=== PATIENT | male | born 1945 | race Caucasian/White ===

== ENCOUNTER 2017-01-09 11:55 | Emergency (ER) | payer MEDICARE, BC ==
[2017-01-09] MEDS ORDERED: Diph,Pert(Acell),Tet Vac 0.5 ML SYR IM ONE (12:22)
--- NOTE | 2017-01-09 12:27 | Emergency Department Record ---
History of Present Illness - General Chief Complaint: Laceration(s) Stated Complaint: LT HAND LACERATION Time Seen by Provider: 01/09/17 12:22 Source: Patient Mode of Arrival: Ambulatory Limitations: No limitations - History of Present Illness Initial Commments: 71 yo male presents with a laceration to his left hand. He had been fishing. He had just cleaned his filet knife and lacerated his left hand. No loss in sensation or ROM. No limitation in movement. He does not know when his last tetanus shot was performed. Onset/Timin -: Minutes(s) Extremity Location: Left: Hand Place: Outdoors Context: Accidental, Sharp object use Associated Symptoms: None Treatments Prior to Arrival: Bandage - Yifan Coma Scale Eye Response: (4) Open spontaneously Motor Response: (6) Obeys commands Verbal Response: (5) Oriented Yifan Total: 15 - Related Data Hx Tetanus Toxoid Vaccination: Yes Patient Tetanus UTD (within 5 yrs): No Home Medications Medication Instructions Recorded Confirmed Last Taken Aspirin [Aspirin EC] 81 mg PO DAILY 01/09/17 01/09/17 Unknown Cholecalciferol (Vitamin D3) 1,000 unit PO DAILY 01/09/17 01/09/17 Unknown [Vitamin D3] Folic Acid 0.4 mg PO DAILY 01/09/17 01/09/17 Unknown Furosemide [Lasix] 20 mg PO DAILY 01/09/17 01/09/17 Unknown Gabapentin [Neurontin] 300 mg PO Q8H 01/09/17 01/09/17 Unknown Hydrocodone/Acetaminophen [[place] 1 each PO Q8H 01/09/17 01/09/17 Unknown 10-325 Tablet] Omeprazole 40 mg PO DAILY 01/09/17 01/09/17 Unknown Simvastatin [Zocor] 20 mg PO DAILY 01/09/17 01/09/17 Unknown Tramadol HCl [Ultram] 50 mg PO Q8H 01/09/17 01/09/17 Unknown Warfarin Sodium [Coumadin] 9 mg PO DAILY 01/09/17 01/09/17 Unknown Previous Rx's Medication Instructions Recorded Cephalexin [Keflex] 500 mg PO TID #21 cap 01/09/17 Allergies Allergy/AdvReac Type Severity Reaction Status Date / Time acetaminophen [From Percocet] Allergy ALTERED Verified 01/09/17 12:13 MENTAL STATUS naproxen [From Naprosyn] Allergy ALTERED Verified 01/09/17 12:13 MENTAL STATUS oxycodone [From Percocet] Allergy ALTERED Verified 01/09/17 12:13 MENTAL STATUS Travel Screening - Travel/Exposure Within Last 30 Days Have you traveled within the last 30 days?: No Review of Systems Constitutional: Denies: Chills, Fever, Malaise Eyes: Denies: Eye discharge ENT: Denies: Congestion, Throat pain Respiratory: Denies: Cough, Dyspnea, Hemoptysis, Stridor, Wheezes Cardiovascular: Denies: Arrhythmia, Palpitations Endocrine: Denies: Fatigue Gastrointestinal: Denies: Abdominal pain, Diarrhea, Nausea, Vomiting Genitourinary: Denies: Dysuria, Frequency, Hematuria Musculoskeletal: Denies: Arthralgia, Back pain, Joint swelling, Myalgia, Neck pain Skin: Reports: Other (lacaertion). Denies: Bruising, Change in color, Pruritus , Rash Neurological: Denies: Headache Psychiatric: Denies: Anxiety Hematological/Lymphatic: Denies: Blood Clots, Easy bleeding, Easy bruising, Swollen glands Past Medical History - SOCIAL HISTORY Smoking Status: Current every day smoker Alcohol Use: None Drug Use: None - RESPIRATORY Hx Respiratory Disorders: Yes Hx COPD: Yes - CARDIOVASCULAR Hx Cardio Disorders: Yes Hx Abnormal EKG: Yes - NEURO Hx Neuro Disorders: No - GI Hx GI Disorders: Yes Hx Reflux: Yes - Hx Genitourinary Disorders: No - ENDOCRINE Hx Endocrine Disorders: No - MUSCULOSKELETAL Hx Musculoskeletal Disorders: Yes Hx Arthritis: Yes - PSYCH Hx Psych Problems: Yes Hx Anxiety: Yes - HEMATOLOGY/ONCOLOGY Hx Hematology/Oncology Disorders: No Family Medical History Any Significant Family History?: No Physical Exam - General General Appearance: Alert, Oriented x3, Cooperative, No acute distress - Head Head exam: Atraumatic, Normal inspection - Eye Eye exam: Normal appearance - ENT ENT exam: Normal exam - Neck Neck exam: Normal inspection - Cardiovascular Cardiovascular Exam: Regular rate, Normal rhythm, Normal heart sounds Peripheral Pulses: 2+: Radial (L) - Rectal Rectal exam: Deferred - exam: Deferred - Extremities Extremities exam: negative: Normal inspection Image of Hand: 1 - 1cm laceration, no FB. - Neurological Neurological exam: Alert, Normal gait, Oriented X3 - Psychiatric Psychiatric exam: Normal affect, Normal mood. negative: Agitated, Anxious - Skin Skin exam: Dry, Intact, Normal color, Warm Course Vital Signs 01/09/17 12:05 Temperature 98.7 F Pulse Rate 85 Respiratory 20 Rate Blood Pressure 142/84 Pulse Ox 95 - Reevaluation(s) Reevaluation #1: The patient was seen and examined Full flexion of all fingers without pain or limitation PROCEDURE LACERATION REPAIR 1cm hand laceration Betadine prep NS irrigation copiously Lidocaine 1% with epi 1.5cm Ethilon 4-0 2 sutres tolerated well we discussed the signs and symptoms for concern regarding infection and reasons to return to the ED 01/09/17 12:25 Disposition Disposition: Discharge Clinical Impression: Hand laceration Qualifiers: Encounter type: initial encounter Foreign body presence: without foreign body Laterality: left Qualified Code(s): S61.412A - Laceration without foreign body of left hand, initial encounter Disposition: Home, Self-Care Condition: (1) Good Instructions: Laceration (ED) Additional Instructions: Return in 7 days for suture removal Return immediately if you have pain, redness, pus, fever, streaking or concerns Prescriptions: Cephalexin [Keflex] 500 mg PO TID #21 cap Forms: Patient Portal Access Time of Disposition: 12:28
== END 2017-01-09 12:55 | disposition home or self-care (01) ==
LOC: ER 11:55
DX: S61.412A Laceration without foreign body of left hand, initial encounter (principal); W26.0XXA Contact with knife, initial encounter
CPT/HCPCS: 12001; 90715; 96372; 99283